=== PATIENT | male | born 1955 | race African-American/Black ===

== ENCOUNTER 2016-08-06 19:30 | Emergency (ER) | payer BC ==
[2016-08-06] MEDS ORDERED: ASPIRIN 81 MG CHEW TAB ONE (20:03)
== END 2016-08-06 23:07 | disposition home or self-care (01) ==
LOC: ER 19:30
DX: R07.2 Precordial pain (principal); F17.200 Nicotine dependence, unspecified, uncomplicated
CPT/HCPCS: 36415; 71010; 80053; 82550; 83735; 84484; 85025; 85610; 85730; 93005